=== PATIENT | male | born 1950 | race Caucasian/White ===

== ENCOUNTER 2018-08-02 07:27 | Day surgery (SDC) | payer BC ==
[2018-08-02] MEDS ORDERED: CEFAZOLIN 2 GM/50 ML BAG ONE (07:56)
[2018-08-02 08:16] LABS: Hemoglobin 14.4 g/dL (14.0-18.0); Mean Corpuscular HGB CONC 34.5 g/dL (32.0-36.0); Mean Corpuscular Hemoglobin 32.9 pg (27.0-31.0); Mean Corpuscular Volume 95.3 fL (78.0-98.0); Mean Platelet Volume 6.8 fL (7.4-10.4); Platelet Count 280 thou/uL (130-400); Red Blood Cell (RBC) Count 4.39 mill/uL (4.70-6.10); White Blood Cell (WBC) Count 6.9 thou/uL (4.8-10.8)
[2018-08-02 08:28] LABS: PTT 30.4 SEC (22.9-36.1); Prothrombin Time 13.5 SEC (12.0-14.7)
[2018-08-02 08:36] LABS: Anion Gap 15 mmol/L (10-20); BUN (Urea Nitrogen) 18 mg/dL (8.4-25.7); Calc. Creatinine Clearance 0 mL/min (70-130); Calcium 9.6 mg/dL (7.8-10.44); Carbon Dioxide 25 mmol/L (23-31); Chloride 103 mmol/L (98-107); Estimated GFR-MDRD 76; Glucose 129 mg/dL (80-115); Potassium 4.7 mmol/L (3.5-5.1); Sodium 138 mmol/L (136-145)
[2018-08-02] MEDS ORDERED: Sodium Chloride 0.9% 10 ML ONE (09:47)
[2018-08-02] MEDS ORDERED: Thrombin 5000 UNITS/5 ML VIAL ONE ×2 (09:48→14:10)
[2018-08-02] MEDS ORDERED: Fentanyl 100 MCG/2 ML VIAL ONE ×3 (09:51→16:48)
[2018-08-02] MEDS ORDERED: Midazolam HCl 2 mg/2 ml Vial ONE (09:51)
[2018-08-02] MEDS ORDERED: Bacitracin Zinc Ointment 30 gm TUBE ONE (11:33)
[2018-08-02] MEDS ORDERED: Morphine 10 MG/ML VIAL ONE (14:55)
[2018-08-02] MEDS ORDERED: HYDROcodone/Acetaminophen 7.5/325 mg Tablet PO PRN (16:05)
[2018-08-02] MEDS ORDERED: Acetaminophen/Codeine 30-300mg Tablet PO PRN (16:05)
[2018-08-02] MEDS ORDERED: Morphine 4 MG/ML VIAL SLOW IVP PRN (16:05)
[2018-08-02] MEDS ORDERED: Milk Of Magnesia 30 ML UDCUP PO PRN (16:05)
[2018-08-02] MEDS ORDERED: Promethazine HCl 25 MG/ML VIAL SLOW IVP PRN (16:05)
[2018-08-02] MEDS ORDERED: traMADol HCl 50 MG TAB PO PRN (16:05)
[2018-08-02] MEDS ORDERED: Fleet Enema 133 ML BOT PR PRN (16:05)
[2018-08-02] MEDS ORDERED: tiZANidine HCl 4 MG TAB PO PRN (16:05)
[2018-08-02] MEDS ORDERED: Bisacodyl 10 MG SUPP PR PRN (16:05)
[2018-08-02] MEDS ORDERED: Acetaminophen 325 MG TAB PO PRN (16:05)
[2018-08-02] MEDS ORDERED: Mag-Al 1200 mg/1200 mg/30 ML UDCUP PO PRN (16:05)
[2018-08-02] MEDS ORDERED: CEFAZOLIN 2 GM/50 ML BAG IVPB SCH (17:00)
[2018-08-02] MEDS: Sodium Chloride 0.9% 1,000 ML IV SCH (17:38)
[2018-08-02 18:13] VITALS: BMI 35.3
[2018-08-02] MEDS ORDERED: Sterile Water 10 ML VIAL ONE (18:43)
[2018-08-02] MEDS ORDERED: PHENYLEPHRINE-NS 100 MCG/ML 10 ML SYRINGE ONE (18:43)
[2018-08-02] MEDS ORDERED: Ondansetron PF 4 MG/2 ML Vial ONE (18:43)
[2018-08-02] MEDS ORDERED: PROPOFOL 200 MG/20 ML VIAL ONE (18:43)
[2018-08-02] MEDS ORDERED: Glycopyrrolate 0.2 MG/ML 5 ML SYRINGE ONE (18:43)
[2018-08-02] MEDS ORDERED: CEFAZOLIN 1 GM VIAL ONE (18:43)
[2018-08-02] MEDS ORDERED: Dexamethasone 20 MG/5 ML VIAL ONE (18:43)
[2018-08-02] MEDS ORDERED: metFORMIN 500 MG TAB PO SCH (21:00)
[2018-08-02] MEDS: CEFAZOLIN 2 GM/50 ML BAG IVPB SCH (21:31)
[2018-08-03] MEDS: Sodium Chloride 0.9% 1,000 ML IV SCH ×2 (05:51→09:00)
[2018-08-03] MEDS: CEFAZOLIN 2 GM/50 ML BAG IVPB SCH (05:54)
[2018-08-03] MEDS ORDERED: Multivit, Therapeutic 1 TAB PO SCH (09:00)
[2018-08-03] MEDS ORDERED: Metamucil PACK PO SCH (09:00)
[2018-08-03 09:47] VITALS: TEMP 98.5
[2018-08-03 11:37] VITALS: BP 100/68
--- NOTE | 2018-08-03 13:44 | OP ---
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 EXCELLENCE CONSULTANT: Adarsh Dunn. POSTPROCEDURE DIAGNOSES: Multilevel lumbar stenosis with multilevel disk extrusion with lumbar radiculopathy and history of L4-L5 surgery in the past. PROCEDURES PERFORMED: 1. L2-L3 laminectomy, partial facetectomy, foraminotomy with right L2-L3 diskectomy. 2. L3-L4 laminectomy, partial facetectomy, and foraminotomy. 3. Left L3-L4 far-lateral (trans-facet approach, lateral and far-lateral disk extrusion). 4. Bilateral revision L4-L5 hemilaminotomy, foraminotomy with right-sided L4-L5 diskectomy. 5. L5-S1 laminectomy, partial facetectomy, and foraminotomy. 6. Use of operative microscope for microdissection. A modifier 50 should be added to the L4-L5 component of the surgery as this was a bilateral revision surgery. DESCRIPTION OF PROCEDURE: After informed consent was obtained from the patient, the patient brought to OR. Proper patient pause and identification were carried out. He was placed in excellent general endotracheal anesthesia, positioned prone on the OR table. The prior L4-L5 incision was identified. This region was sterilely cleansed, prepared, and draped and using localization, we extended the incision a bit cephalad and caudal. Proper patient pause and identification were carried out. The wound was then opened with a combination of sharp, monopolar, and blunt dissection, and proceeded to take expose the L2, L3, L4, L5, and S1 posterior elements and facet complexes. It was quite clear that there was exuberant scar tissue mainly on the left side of the L4-L5 segment, where he had his prior L4-L5 surgery. Following localization, we then proceeded to perform an L2-L3 laminectomy, partial facetectomy, foraminotomies, and then brought the microscope in for microdissection and used it through all portions of the surgery. We did a right-sided L2-L3 diskectomy and then turned our attention to L3-L4 laminectomy, partial facetectomy, and foraminotomy. We then proceed with a left L3-L4 trans-facet approach for decompression of the foramen and the lateral portion of the foramen due to a lateral and far-lateral disk extrusion on the left side. We then turned our attention to the L4-L5 segment. Again identified an exuberant scar tissue on the left-sided L4-L5. I felt as if in the foramen, there was majority of essentially scar tissue and not lateral and far-lateral disk material as such we did not need to do a far-lateral approach in the left side at L4-L5, but I did do with the bilateral revision L4-L5 jj-lamina surgery. I did do a diskectomy from the right side in revision nature for standard L4-L5 diskectomy. We then did an L5-S1 laminectomy plus facetectomy and foraminotomy. Following copious irrigation, maximizing hemostasis, I assured freedom of all of the nerve roots and the wound was then closed in anatomic layers following sprinkling of vancomycin powder with meticulous hemostasis. The patient then emerged from anesthesia. Job ID: [id number]
--- NOTE | 2018-08-04 04:53 | DIS ---
DATE OF ADMISSION: 08/02/2018 DATE OF DISCHARGE: 08/03/2018 DISCHARGE DIAGNOSIS: Include lumbar stenosis with neurogenic claudication. HOSPITAL COURSE: Mr. rUibe was admitted to undergo multilevel lumbar laminectomies, as well as multilevel diskectomies with Dr. Smyth. The patient's surgery was without complication and he required one overnight stay for pain control postoperatively. At the time of discharge, he met all criteria, had good strength in the bilateral lower extremities, was walking well. He did have some incisional back pain, but denied any radicular complaints other than some pain into the back with pushing off the feet. He was satisfied with his outcome postoperatively. Appropriate patient education and outpatient followup appointments were provided and again at the time of discharge, the patient was doing well. He certainly understood to call the office with questions or concerns prior to his followup. Job ID: [id number]
== END 2018-08-03 12:44 | disposition home or self-care (01) ==
LOC: SDC 07:27 → SJJU 17:25 → SDC 08-03 12:44
PROVIDERS: ATTEND Surgery
PROC: 01NB0ZZ Release Lumbar Nerve, Open Approach (ICD-10-PCS; principal; 2018-08-02)
PROC: 0ST20ZZ Resection of Lumbar Vertebral Disc, Open Approach (ICD-10-PCS; principal; 2018-08-02)
DX: M48.062 Spinal stenosis, lumbar region with neurogenic claudication (principal); M51.16 Intervertebral disc disorders with radiculopathy, lumbar region; Z79.84 Long term (current) use of oral hypoglycemic drugs; Z79.899 Other long term (current) drug therapy; Z98.890 Other specified postprocedural states
CPT/HCPCS: 76000; 80048; 85027; 85610; 85730; 93005; 93010; 96374; A4216; J0690; J1100; J2250; J2270; J2405; J2704; J3010; J3370; J3490